=== PATIENT | female | born 1990 | race Caucasian/White ===

== ENCOUNTER → 2017-06-18 | Outpatient (CLI) | payer BC ==
[2017-06-18 15:06] LABS: URINE APPEARANCE CLEAR (CLEAR); URINE BILIRUBIN NEG (NEG); URINE COLOR YELLOW; URINE NITRITE NEG (NEG); URINE PH 8.5 (4.5-7.5); URINE SPECIFIC GRAVITY 1.015 (1.000-1.030); UROBILINOGEN NEG (NEG)
[2017-06-18 15:07] LABS: MANUAL MICROSCOPIC REQUIRED? NO; REVIEW REQ? NO
== END | disposition home or self-care (01) ==
LOC: C.LABSPEC 13:09
PROVIDERS: ATTEND Physician Assistant
DX: R39.9 Unspecified symptoms and signs involving the genitourinary system (principal); N89.8 Other specified noninflammatory disorders of vagina

== ENCOUNTER → 2018-06-10 | Outpatient (CLI) | payer BC ==
--- NOTE | 2018-06-10 14:56 | DIAGNOSTIC IMAGING REPORT ---
TRANSVAG-FEMALE PELVIS CLINICAL HISTORY: 28 years-old Female presenting with LOWER LT QUAD PAIN. TECHNIQUE: Real-time grayscale and color and spectral Doppler ultrasound imaging of the pelvis was performed first using a transabdominal probe and subsequently transvaginal for better characterization. COMPARISON: None. FINDINGS: Uterus: Normal. Retroverted anteflexed. The uterus measures 6.6 x 3.7 x 4.0 cm. Endometrial stripe measures 5 mm in thickness. Endometrium normal-appearing. Cervix normal. Right adnexa: Right ovary normal. Right ovary measures 2.4 x 1.5 x 2.9 cm. Normal color Doppler flow and arterial and venous waveforms within the ovarian parenchyma. Left adnexa: Left ovary contains an involuting follicle/corpus luteum in addition to multiple other follicles. Left ovary measures 4.0 x 2.3 x 2.5 cm. Normal color Doppler flow and arterial and venous waveforms within the ovarian parenchyma. Other: Trace free fluid, likely physiologic. IMPRESSION: No significant abnormality identified within the pelvis. No ovarian torsion. Involuting follicle/corpus luteum in the left ovary. Electronically signed by: Edwin Schwartz M.D. 06/10/2018 2:55 PM Dictated Date/Time: 06/10/2018 2:53 PM
== END | disposition home or self-care (01) ==
LOC: C.ULTRBC 13:49
PROVIDERS: ATTEND Family Medicine
DX: R10.32 Left lower quadrant pain (principal)

== ENCOUNTER → 2018-06-11 | Outpatient (CLI) | payer BC ==
--- NOTE | 2018-06-11 18:45 | DIAGNOSTIC IMAGING REPORT ---
KUB HISTORY: Lower abdominal pain. Constipation. COMPARISON: None. FINDINGS: The bowel gas pattern is unremarkable. There are no dilated loops of small bowel to suggest an obstruction. No renal calculi. No ureteral calculi. No pneumoperitoneum or pneumatosis. Small amount of well-formed stool seen throughout the colon. IMPRESSION: No evidence for bowel obstruction. No significant abnormality within the abdomen. Electronically signed by: Anjel Mcmanus M.D. 06/11/2018 6:44 PM Dictated Date/Time: 06/11/2018 6:42 PM
== END | disposition home or self-care (01) ==
LOC: C.RAD 17:31
PROVIDERS: ATTEND Nurse Practitioner Family
DX: R10.30 Lower abdominal pain, unspecified (principal); R14.0 Abdominal distension (gaseous); R30.0 Dysuria

== ENCOUNTER → 2018-07-06 | Outpatient (CLI) | payer BC ==
[~2018-07-06] VITALS: Ht 167.6 cm; Wt 114.4 kg
[2018-07-06 13:40] VITALS: BP 116/72; PULSE 83; Ht 167.6 cm; Wt 114.4 kg
== END | disposition home or self-care (01) ==
LOC: C.NEUR 13:00
PROVIDERS: ATTEND Internal Medicine Pulmonary Disease
DX: G47.30 Sleep apnea, unspecified (principal); R53.83 Other fatigue